=== PATIENT | female | born 1955 | race Caucasian/White ===

== ENCOUNTER 2024-05-27 14:37 | Observation (INO) ==
[2024-05-27 17:33] LABS: EOSINOPHILS # (AUTO) 0.5 x10^3/uL (0.0-0.2); EOSINOPHILS % (AUTO) 10.5 % (0.9-2.9); HEMATOCRIT 35.2 % (36.0-47.0); HEMOGLOBIN 12.1 g/dL (12.0-16.0); LYMPHOCYTES # (AUTO) 1.1 X10^3/uL (1.3-2.9); LYMPHOCYTES % (AUTO) 25.1 % (21.0-51.0); MEAN CORPUSCULAR HEMOGLOBIN 34.5 pg (27.0-34.0); MEAN CORPUSCULAR HGB CONC 34.3 g/dL (33.0-35.0); MEAN CORPUSCULAR VOLUME 100.5 fL (80.0-100.0); MEAN PLATELET VOLUME 7.2 fL (7.4-11.0); MONOCYTES # (AUTO) 0.5 x10^3/uL (0.3-0.8); MONOCYTES % (AUTO) 10.3 % (0.0-13.0); NEUTROPHILS # (AUTO) 2.4 x10^3/uL (2.2-4.8); NEUTROPHILS % (AUTO) 53.1 % (42.0-75.0); PLATELET COUNT 172 X10^3/uL (150.0-450.0); RED CELL DISTRIBUTION WIDTH 12.8 % (11.6-16.5); WHITE BLOOD COUNT 4.5 X10^3/uL (3.6-10.0)
[2024-05-27 17:49] LABS: ALANINE AMINOTRANSFERASE 12 Units/L (12-78); ALBUMIN 3.5 g/dL (3.4-5.0); ALKALINE PHOSPHATASE 57 Units/L (46-116); ASPARTATE AMINO TRANSFERASE 21 Units/L (15-37); BLOOD UREA NITROGEN 8 mg/dL (7-18); CALCIUM 9.8 mg/dL (8.5-10.1); CARBON DIOXIDE 27.3 mmol/L (21-32); CHLORIDE 100 mmol/L (98-107); CREATININE 1.06 mg/dL (0.55-1.02); GLUCOSE 74 mg/dL (65-99); POTASSIUM 4.1 mmol/L (3.5-5.1); SODIUM 136 mmol/L (136-145); TOTAL PROTEIN 7.4 g/dL (6.4-8.2); eGFR NON BLACK RACES 54 (>60)
[2024-05-27 17:59] VITALS: BMI 19.8
[2024-05-27] MEDS: NS 1,000 ML IV 1,000 ML IV ONE (18:14)
[2024-05-27] MEDS ORDERED: PROVENTIL NEB TX 0.083% 2.5MG/ 3ML NEB PRN (18:28)
[2024-05-27] MEDS ORDERED: ZOFRAN TAB 4 MG SL PRN (19:08)
[2024-05-27] MEDS: NORCO 5/325 MG TAB PO PRN (20:09)
[2024-05-27] MEDS: CHECK PATCH XX SCH (20:10)
[2024-05-27] MEDS: RESTORIL CAP 15 MG PO PRN (22:24)
[2024-05-27 23:40] LABS: CRYPTOSPORIDIUM PARVUM ANTIGEN NEGATIVE (NEGATIVE); GIARDIA LAMBLIA ANTIGEN NEGATIVE (NEGATIVE)
[2024-05-28] MEDS: NS 1,000 ML IV 1,000 ML IV SCH (02:39)
[2024-05-28 06:12] LABS: BASOPHILS % (AUTO) 1.2 % (0.2-1.0); EOSINOPHILS # (AUTO) 0.5 x10^3/uL (0.0-0.2); EOSINOPHILS % (AUTO) 15.9 % (0.9-2.9); HEMATOCRIT 29.9 % (36.0-47.0); HEMOGLOBIN 10.4 g/dL (12.0-16.0); LYMPHOCYTES # (AUTO) 1.1 X10^3/uL (1.3-2.9); LYMPHOCYTES % (AUTO) 31.8 % (21.0-51.0); MEAN CORPUSCULAR HEMOGLOBIN 35.1 pg (27.0-34.0); MEAN CORPUSCULAR HGB CONC 34.8 g/dL (33.0-35.0); MEAN PLATELET VOLUME 7.5 fL (7.4-11.0); MONOCYTES # (AUTO) 0.3 x10^3/uL (0.3-0.8); MONOCYTES % (AUTO) 9.5 % (0.0-13.0); NEUTROPHILS # (AUTO) 1.4 x10^3/uL (2.2-4.8); NEUTROPHILS % (AUTO) 41.6 % (42.0-75.0); PLATELET COUNT 160 X10^3/uL (150.0-450.0); RED BLOOD COUNT 2.96 X10^6/uL (3.5-5.4); RED CELL DISTRIBUTION WIDTH 12.9 % (11.6-16.5); WHITE BLOOD COUNT 3.4 X10^3/uL (3.6-10.0)
[2024-05-28 06:30] LABS: ALANINE AMINOTRANSFERASE 12 Units/L (12-78); ALBUMIN 2.8 g/dL (3.4-5.0); ALKALINE PHOSPHATASE 44 Units/L (46-116); ASPARTATE AMINO TRANSFERASE 15 Units/L (15-37); BLOOD UREA NITROGEN 6 mg/dL (7-18); CALCIUM 9.2 mg/dL (8.5-10.1); CARBON DIOXIDE 26.1 mmol/L (21-32); CHLORIDE 105 mmol/L (98-107); COR CA(FOR HYPOALB) 10.2 mg/dL (8.5-10.1); CREATININE 0.91 mg/dL (0.55-1.02); GLUCOSE 77 mg/dL (65-99); POTASSIUM 3.9 mmol/L (3.5-5.1); SODIUM 138 mmol/L (136-145); TOTAL PROTEIN 6.1 g/dL (6.4-8.2); eGFR NON BLACK RACES > 60 (>60)
[2024-05-28] MEDS: NS 1,000 ML IV 1,000 ML with MVI INJ (ADULT) 10 ML IV SCH (08:37)
[2024-05-28] MEDS: CIPRO IV 400 MG PREMIX* 400 MG/200 ML IV.SOLN. IV SCH (08:38)
[2024-05-28] MEDS: NICOTINE PATCH TD SCH (08:39)
[2024-05-28] MEDS: LOVENOX INJ 40 MG SYR SC SCH (09:09)
--- NOTE | 2024-05-28 12:48 | CT ---
EXAM: CT abdomen pelvis with contrast HISTORY: Abdominal pain, diarrhea TECHNIQUE: Axial postcontrast images with coronal and sagittal reformats. Dose reduction procedures were used w ith mA/kv adjusted for body size. COMPARISON: None available FINDINGS: Lung bases are clear. The liver, spleen, adrenal glands, and pancreas are within normal limits. S everal benign hepatic cysts are identified. No opaque stones are present within the gallbladder. Ki dneys are unobstructed and without stones or masses there is a left renal cyst present. No ureteral calculi are identified. Appendix is not identified with absolute certainty. There are no secondary signs of appendicitis. There are no findings suggestive of enteritis, colitis or diverticulitis. Di ffuse calcific atherosclerotic changes present in the nondilated abdominal aorta. There is extensive severe atherosclerotic change involving the superior mesenteric artery with multiple areas of stenos is some of which may be as much as 90%. Correlation with CTA of the abdomen and pelvis is recommende d when the patient's current intravenous contrast has cleared her system. There is diastasis of the rectus abdominis musculature with bulging of mesenteric fat into the anterior abdominal wall. The fa t is uncomplicated in a true ventral hernia does not appear to be present. Examination of the pelvis demonstrated no evidence for pelvic masses, pelvic fluid, or pelvic lymphadenopathy. No bladder abn ormality is identified. No lytic or blastic skeletal lesions of significance are identified. IMPRESSION: No findings to suggest enteritis or colitis as an etiology of the patient's diarrhea and abdominal p ain. Severe calcific atherosclerotic change throughout the abdominal aorta common iliac vessels and other abdominal vasculature with severe involvement of the superior mesenteric artery which demonstrate mul tiple areas of stenosis within the proximal SMA some possibly as great as 90%. This could be contrib uting to abdominal pain and diarrhea. Further evaluation with CTA of the abdomen and pelvis may be o f further diagnostic value when the patient's current contrast load has cleared her system. Vascular surgery consultation may also be indicated. Diastasis of the rectus abdominal musculature as described above THIS IS AN ELECTRONICALLY VERIFIED FINAL REPORT 05/28/2024 12:45 PM - Electronically signed by Jayson Mazariegos MD
--- NOTE | 2024-05-28 13:21 | DR.H&P ---
H&P History & Physical for Day of: H&P Date: 05/28/24 Chief Complaint Chief Complaint: diarrhea History of Present Illness History of Present Illness: Patient admitted with a greater than a month of profuse, watery, intractable diarrhea. Having up to 15 stools a day. Has lost ~20lbs over the past 5 weeks. She does have a history of colon cancer status post resection 2 years ago. On a follow-up PET scan a lung nodule was found on the left lower lobe which responded well to radiation. She has been cancer free for over a year now. Since her colon resection she has had a large ventral hernia. It has worsened during these episodes of stooling. She denies fever, chills, nausea, vomiting, hematochezia, hematemesis, syncope, poor p.o. intake, leg edema, rash. After admission, kidney function did improve with IV fluids, vitals have remained stable, CBC showed a delusional effect, and she has been able to tolerate meals. Has only had a couple of loose, watery stools since admission. PMH: Colon cancer, hyperlipidemia, GERD, JOSIE, OA. PSH: Appendectomy, hysterectomy, colon resection. Social: Local resident, good social support, daily smoker. ROS: 12 point ROS negative except as noted in HPI. PE: Thin, emaciated female in no acute distress. Head NCAT. Hearing intact to conversation. Extraocular movements are grossly normal. Heart regular rate and rhythm with no murmur. Lungs are clear with good air movement. Belly is soft, nontender, nondistended. Does have a large ventral hernia inferior to the umbilicus. Bowel sounds are hyperactive. Mood and affect are appropriate. No swelling of her extremities. Moves all extremities equally well. Past Surgical History Surgical History: Appendectomy, Hysterectomy and Ortho Surgery Family History Family Medical History: Diabetes Mellitus, Cancer and Coronary Artery Disease Social History Does patient currently use any type of tobacco product: Yes Type of Tobacco Use: Cigarettes How many years tobacco product used: 55 Alcohol Use: DAILY Drug Use: None Medications Home Medications: Home Medications Medication Instructions Recorded Confirmed Type alprazolam 1 mg tablet 0.5 mg PO BID 05/27/24 05/27/24 History citalopram 20 mg tablet 20 mg PO QDAY 05/27/24 05/27/24 History fenofibrate 54 mg tablet 54 mg PO QDAY 05/27/24 05/27/24 History fluticasone propionate 50 1 spray intranasal DAILY 05/27/24 05/27/24 History mcg/actuation nasal spray,suspension ibuprofen 800 mg tablet 800 mg PO DAILY 05/27/24 05/27/24 History meloxicam 15 mg tablet 15 mg PO QDAY 05/27/24 05/27/24 History omeprazole 40 mg capsule,delayed 40 mg PO QDAY 05/27/24 05/27/24 History release pravastatin 80 mg tablet 80 mg PO HS 05/27/24 05/27/24 History Allergies Allergies Allergy/AdvReac Type Severity Reaction Status Date / Time codeine AdvReac Verified 05/27/24 18:02 Labs 05/28/24 05:25 05/28/24 05:25 Labs: 05/27/24 21:58 Stool - Final Laboratory WBC 3.4 X10^3/uL (3.6-10.0) L 05/28/24 05:25 RBC 2.96 X10^6/uL (3.5-5.4) L 05/28/24 05:25 Hgb 10.4 g/dL (12.0-16.0) L 05/28/24 05:25 Hct 29.9 % (36.0-47.0) L 05/28/24 05:25 MCV 101.0 fL (80.0-100.0) H 05/28/24 05:25 MCH 35.1 pg (27.0-34.0) H 05/28/24 05:25 MCHC 34.8 g/dL (33.0-35.0) 05/28/24 05:25 RDW 12.9 % (11.6-16.5) 05/28/24 05:25 Plt Count 160 X10^3/uL (150.0-450.0) 05/28/24 05:25 MPV 7.5 fL (7.4-11.0) 05/28/24 05:25 Neut % (Auto) 41.6 % (42.0-75.0) L 05/28/24 05:25 Lymph % (Auto) 31.8 % (21.0-51.0) 05/28/24 05:25 [place] % (Auto) 9.5 % (0.0-13.0) 05/28/24 05:25 Eos % (Auto) 15.9 % (0.9-2.9) H 05/28/24 05:25 Baso % (Auto) 1.2 % (0.2-1.0) H 05/28/24 05:25 Neut # (Auto) 1.4 x10^3/uL (2.2-4.8) L 05/28/24 05:25 Lymph # (Auto) 1.1 X10^3/uL (1.3-2.9) L 05/28/24 05:25 [place] # (Auto) 0.3 x10^3/uL (0.3-0.8) 05/28/24 05:25 Eos # (Auto) 0.5 x10^3/uL (0.0-0.2) H 05/28/24 05:25 Baso # (Auto) 0.0 X10^3/uL (0.0-0.1) 05/28/24 05:25 Absolute Nucleated RBC 0.1 /100WBC 05/28/24 05:25 Sodium 138 mmol/L (136-145) 05/28/24 05:25 Corrected Sodium TNP 05/28/24 05:25 Potassium 3.9 mmol/L (3.5-5.1) 05/28/24 05:25 Chloride 105 mmol/L (98-107) 05/28/24 05:25 Carbon Dioxide 26.1 mmol/L (21-32) 05/28/24 05:25 BUN 6 mg/dL (7-18) L 05/28/24 05:25 Creatinine 0.91 mg/dL (0.55-1.02) 05/28/24 05:25 Est GFR (MDRD) Af Amer > 60 (>60) 05/28/24 05:25 Est GFR (MDRD) Non-Af > 60 (>60) 05/28/24 05:25 Glucose 77 mg/dL (65-99) 05/28/24 05:25 Calcium 9.2 mg/dL (8.5-10.1) 05/28/24 05:25 Corrected Calcium 10.2 mg/dL (8.5-10.1) H 05/28/24 05:25 Total Bilirubin 0.40 mg/dL (0.2-1.0) 05/28/24 05:25 AST 15 Units/L (15-37) 05/28/24 05:25 ALT 12 Units/L (12-78) 05/28/24 05:25 Alkaline Phosphatase 44 Units/L (46-116) L 05/28/24 05:25 Total Protein 6.1 g/dL (6.4-8.2) L 05/28/24 05:25 Albumin 2.8 g/dL (3.4-5.0) L 05/28/24 05:25 Globulin 3.3 g/dL (2.5-4.5) 05/28/24 05:25 Albumin/Globulin Ratio 0.8 Ratio (1.1-2.1) L 05/28/24 05:25 Stl Occult Blood (IFOB) Negative (NEGATIVE) 05/27/24 21:58 Stool for White Cells Positive (NEGATIVE) A 05/27/24 21:58 Stl C. diff Tox B Gene Negative (NEGATIVE) 05/27/24 21:58 Stl C. diff [id number] Presumptive negative (NEGATIVE) 05/27/24 21:58 Cryptosporid parvum Ag Negative (NEGATIVE) 05/27/24 21:58 Giardia lamblia Ag Negative (NEGATIVE) 05/27/24 21:58 Physical Exam Vital Signs: Vital Signs Temperature 98.3 F Temperature 98.5 F Pulse Rate [Brachial] 63 Pulse Rate [Brachial] 67 Respiratory Rate 20 Respiratory Rate 18 Blood Pressure [Right Arm] 121/58 Blood Pressure [Right Arm] 130/60 O2 Sat by Pulse Oximetry 94 O2 Sat by Pulse Oximetry 94 Assessment/Plan (1) Infectious diarrhea: Narrative Support Text: Start Cipro and Flagyl. CT of the abdomen pelvis with p.o. and IV contrast. Multiple stool studies have been negative so far. Still pending pathogen PCR. Status: Acute (2) Mixed hyperlipidemia: Narrative Support Text: Continue home meds Status: Acute (3) Ventral hernia without obstruction or gangrene: Narrative Support Text: Plan on general surgery consult after CT Status: Acute (4) JOSIE (generalized anxiety disorder): Narrative Support Text: Continue home meds Status: Acute (5) History of colon cancer in adulthood: Narrative Support Text: CT Status: Acute
[2024-05-28] MEDS: FLAGYL IV PREMIX 500 MG BAG 500 MG/100 ML BAG IV SCH (13:53)
[2024-05-28] MEDS: TYLENOL 325 MG TAB PO PRN (16:33)
[2024-05-29 06:14] LABS: BASOPHILS % (AUTO) 1.2 % (0.2-1.0); EOSINOPHILS # (AUTO) 0.6 x10^3/uL (0.0-0.2); EOSINOPHILS % (AUTO) 14.1 % (0.9-2.9); HEMOGLOBIN 10.7 g/dL (12.0-16.0); LYMPHOCYTES % (AUTO) 26.7 % (21.0-51.0); MEAN CORPUSCULAR HEMOGLOBIN 34.7 pg (27.0-34.0); MEAN CORPUSCULAR HGB CONC 34.5 g/dL (33.0-35.0); MEAN CORPUSCULAR VOLUME 100.5 fL (80.0-100.0); MEAN PLATELET VOLUME 7.5 fL (7.4-11.0); MONOCYTES # (AUTO) 0.4 x10^3/uL (0.3-0.8); MONOCYTES % (AUTO) 9.9 % (0.0-13.0); NEUTROPHILS # (AUTO) 1.9 x10^3/uL (2.2-4.8); NEUTROPHILS % (AUTO) 48.1 % (42.0-75.0); PLATELET COUNT 165 X10^3/uL (150.0-450.0); RED BLOOD COUNT 3.08 X10^6/uL (3.5-5.4); WHITE BLOOD COUNT 3.9 X10^3/uL (3.6-10.0)
[2024-05-29 06:30] LABS: ALANINE AMINOTRANSFERASE 11 Units/L (12-78); ALKALINE PHOSPHATASE 46 Units/L (46-116); ASPARTATE AMINO TRANSFERASE 16 Units/L (15-37); BLOOD UREA NITROGEN 4 mg/dL (7-18); CALCIUM 9.3 mg/dL (8.5-10.1); CHLORIDE 104 mmol/L (98-107); COR CA(FOR HYPOALB) 10.1 mg/dL (8.5-10.1); CREATININE 0.89 mg/dL (0.55-1.02); GLUCOSE 87 mg/dL (65-99); POTASSIUM 3.1 mmol/L (3.5-5.1); SODIUM 138 mmol/L (136-145); TOTAL PROTEIN 6.5 g/dL (6.4-8.2); eGFR NON BLACK RACES > 60 (>60)
[2024-05-29] MEDS: OMNIPAQUE 350 mg/mL 100 mL BTL 100 ML ONE (06:59)
[2024-05-29] MEDS: NS 500 ML IV 500 ML IV ONE (06:59)
[2024-05-29] MEDS: READI-CAT 2 ONE (06:59)
[2024-05-29] MEDS ORDERED: CONSULT PHARMACY - POTASSIUM & MAGNESIUM XX SCH (07:00)
[2024-05-29] MEDS: K-DUR TAB 20 MEQ PO SCH (08:11)
[2024-05-29] MEDS: MAG-OX TAB PO SCH (08:13)
--- NOTE | 2024-05-29 09:19 | PCM.PROG ---
Progress Note Progress Note for Day of Date of Exam: 05/29/24 Subjective Subjective: Patient is doing well this morning. No acute events overnight. She has had no diarrhea episodes over the past 24 hours. Labs/imaging: WBC 3.9, hemoglobin 10.9, platelets 165, sodium 138, potassium 3.1, creatinine 0.89, glucose 87. GI PCR pending. Stool culture negative growth to date. Patient did have CT abdomen pelvis that showed multiple areas of stenosis of the mesenteric arteries. Vascular surgeryDr. Hayes was consulted and will be evaluating. Blood pressure has been trending up, will start on Norvasc 5 mg daily. Otherwise continue with current treatment plan. Replete potassium as per protocol. Continue closely monitor and follow-up labs/imaging. Past Medical Family Social History Allergies: Allergies codeine Adverse Reaction (Verified 05/27/24 18:02) Review of Systems ROS changes noted: see HPI Vital Signs and I&O's Vital Signs: Vital Signs Temperature 98 F Temperature 98 F Pulse Rate [Brachial] 59 Pulse Rate [Brachial] 60 Respiratory Rate 19 Respiratory Rate 20 Blood Pressure [Right Arm] 175/75 Blood Pressure [Right Arm] 156/75 O2 Sat by Pulse Oximetry 96 O2 Sat by Pulse Oximetry 95 Intake and Output: Intake & Output 05/26/24 05/27/24 05/28/24 05/29/24 23:59 23:59 23:59 23:59 Intake Total 712 / 712 3391 / 3391 582 / 582 Balance 712 / 712 3391 / 3391 582 / 582 Physical Exam Oriented: Normal, Time, Person and Place Eyes: Normal Respiratory: Normal Cardiovascular: Normal Auscultation: Bowel Sounds: Normal Palpation: Normal Tenderness: Normal Skin: Normal Musculoskeletal: Normal Mood Description: Calm Speech Pattern: Clear and Appropriate Laboratory and Diagnostics 05/29/24 05:06 05/29/24 05:06 Labs: 05/27/24 21:58 Stool Stool Culture - Final 05/27/24 21:58 Stool - Final Laboratory WBC 3.9 X10^3/uL (3.6-10.0) 05/29/24 05:06 RBC 3.08 X10^6/uL (3.5-5.4) L 05/29/24 05:06 Hgb 10.7 g/dL (12.0-16.0) L 05/29/24 05:06 Hct 31.0 % (36.0-47.0) L 05/29/24 05:06 MCV 100.5 fL (80.0-100.0) H 05/29/24 05:06 MCH 34.7 pg (27.0-34.0) H 05/29/24 05:06 MCHC 34.5 g/dL (33.0-35.0) 05/29/24 05:06 RDW 13.0 % (11.6-16.5) 05/29/24 05:06 Plt Count 165 X10^3/uL (150.0-450.0) 05/29/24 05:06 MPV 7.5 fL (7.4-11.0) 05/29/24 05:06 Neut % (Auto) 48.1 % (42.0-75.0) 05/29/24 05:06 Lymph % (Auto) 26.7 % (21.0-51.0) 05/29/24 05:06 [place] % (Auto) 9.9 % (0.0-13.0) 05/29/24 05:06 Eos % (Auto) 14.1 % (0.9-2.9) H 05/29/24 05:06 Baso % (Auto) 1.2 % (0.2-1.0) H 05/29/24 05:06 Neut # (Auto) 1.9 x10^3/uL (2.2-4.8) L 05/29/24 05:06 Lymph # (Auto) 1.0 X10^3/uL (1.3-2.9) L 05/29/24 05:06 [place] # (Auto) 0.4 x10^3/uL (0.3-0.8) 05/29/24 05:06 Eos # (Auto) 0.6 x10^3/uL (0.0-0.2) H 05/29/24 05:06 Baso # (Auto) 0.0 X10^3/uL (0.0-0.1) 05/29/24 05:06 Absolute Nucleated RBC 0.1 /100WBC 05/29/24 05:06 Sodium 138 mmol/L (136-145) 05/29/24 05:06 Corrected Sodium TNP 05/29/24 05:06 Potassium 3.1 mmol/L (3.5-5.1) L 05/29/24 05:06 Chloride 104 mmol/L (98-107) 05/29/24 05:06 Carbon Dioxide 28.0 mmol/L (21-32) 05/29/24 05:06 BUN 4 mg/dL (7-18) L 05/29/24 05:06 Creatinine 0.89 mg/dL (0.55-1.02) 05/29/24 05:06 Est GFR (MDRD) Af Amer > 60 (>60) 05/29/24 05:06 Est GFR (MDRD) Non-Af > 60 (>60) 05/29/24 05:06 Glucose 87 mg/dL (65-99) 05/29/24 05:06 Calcium 9.3 mg/dL (8.5-10.1) 05/29/24 05:06 Corrected Calcium 10.1 mg/dL (8.5-10.1) 05/29/24 05:06 Magnesium 1.2 mg/dL (2.0-2.9) L 05/29/24 05:06 Total Bilirubin 0.60 mg/dL (0.2-1.0) 05/29/24 05:06 AST 16 Units/L (15-37) 05/29/24 05:06 ALT 11 Units/L (12-78) L 05/29/24 05:06 Alkaline Phosphatase 46 Units/L (46-116) 05/29/24 05:06 Total Protein 6.5 g/dL (6.4-8.2) 05/29/24 05:06 Albumin 3.0 g/dL (3.4-5.0) L 05/29/24 05:06 Globulin 3.5 g/dL (2.5-4.5) 05/29/24 05:06 Albumin/Globulin Ratio 0.9 Ratio (1.1-2.1) L 05/29/24 05:06 Stl Occult Blood (IFOB) Negative (NEGATIVE) 05/27/24 21:58 Stool for White Cells Positive (NEGATIVE) A 05/27/24 21:58 Stl C. diff Tox B Gene Negative (NEGATIVE) 05/27/24 21:58 Stl C. diff [id number] Presumptive negative (NEGATIVE) 05/27/24 21:58 Cryptosporid parvum Ag Negative (NEGATIVE) 05/27/24 21:58 Giardia lamblia Ag Negative (NEGATIVE) 05/27/24 21:58 Plan (1) Infectious diarrhea: Status: Acute (2) Mixed hyperlipidemia: Status: Acute (3) Ventral hernia without obstruction or gangrene: Status: Acute (4) JOSIE (generalized anxiety disorder): Status: Acute (5) History of colon cancer in adulthood: Status: Acute
[2024-05-29] MEDS: NORVASC TAB 5 MG PO SCH (09:36)
--- NOTE | 2024-05-29 17:19 | DR.CONSULT ---
CONSULT Consultation for Day of: Date: 05/28/24 Chief Complaint Chief Complaint: abdominal pain, vomiting , diarrhea Allergies Allergies Allergy/AdvReac Type Severity Reaction Status Date / Time codeine AdvReac Verified 05/27/24 18:02 History of Present Illness History of Present Illness: This is a 69 year old female with 1 month history of persistent diarrhea and abdominal pain,often with meals. She had CT scan of the abdomen not dedicated to the vascular tree which did however show significant stenosis of the superior mesenteric artery with stenosis up to 90% which could be the source of her problem. She has history of colon cancer S/P resection in the past followed by chemotherapy. Subsequent developed a lung metastasis requiring radiation treatment. Patient is a heavy smoker. She denies any significant problems with her legs or walking although she walks very little. She also has a large ventral incisional hernia .I have been asked to evaluate her in regards to the severe superior mesenteric artery stenosis. She has lost over 20 pounds in the last 5 weeks. She lost significant weight which she never regained after treatment for her colon cancer . She also gives a history or alcohol use every day. Past Medical History Past Medical History: Arthritis, Dyslipidemia and GERD Additional Medical History: Hx of colon cancer treated as above Past Surgical History Surgical History: Appendectomy, Bowel Resection (colon resection for colon cancer in the past ), Hysterectomy and Ortho Surgery Family History Family Medical History: Diabetes Mellitus, Cancer and Coronary Artery Disease Social History Does patient currently use any type of tobacco product: Yes Type of Tobacco Use: Cigarettes How many years tobacco product used: 55 Alcohol Use: DAILY Drug Use: None Medications Home Medications: codeine Adverse Reaction (Verified 05/27/24 18:02) CONTINUE taking the following medications alprazolam 1 mg tablet 0.5 mg PO BID 05/27/24 [History] citalopram 20 mg tablet 20 mg PO QDAY 05/27/24 [History] fenofibrate 54 mg tablet 54 mg PO QDAY 05/27/24 [History] fluticasone propionate 50 mcg/actuation nasal spray,suspension 1 spray intranasal DAILY 05/27/24 [History] ibuprofen 800 mg tablet 800 mg PO DAILY 05/27/24 [History] meloxicam 15 mg tablet 15 mg PO QDAY 05/27/24 [History] omeprazole 40 mg capsule,delayed release 40 mg PO QDAY 05/27/24 [History] pravastatin 80 mg tablet 80 mg PO HS 05/27/24 [History] Review of Systems Constitutional: See HPI Eyes: No Symptoms Reported ENT: No Symptoms Reported Respiratory: No Symptoms Reported Cardiovascular: No Symptoms Reported Gastrointestinal: See HPI Genitourinary: No Symptoms Reported Musculoskeletal: No Symptoms Reported Skin: No Symptoms Reported Neurological: No Symptoms Reported Physical Exam Vital Signs: Vital Signs Temperature 97.7 F Temperature 97.8 F Temperature 97.8 F Pulse Rate [Brachial] 61 Pulse Rate [Brachial] 62 Pulse Rate [Brachial] 56 Respiratory Rate 19 Respiratory Rate 22 Respiratory Rate 18 Respiratory Rate 18 Respiratory Rate 18 Blood Pressure [Right Arm] 165/70 Blood Pressure [Right Arm] 180/74 Blood Pressure [Right Arm] 169/68 O2 Sat by Pulse Oximetry 96 O2 Sat by Pulse Oximetry 97 O2 Sat by Pulse Oximetry 98 Oriented: Normal, Time, Person and Place Eyes: Normal Ear: Normal Nose: Normal Throat: Normal Respiratory: Wheezes Throughout Cardiovascular: Normal : Normal Auscultation: Bowel Sounds: Normal Palpation: Other (large infra-umbilical ventral incisional hernia ) Tenderness: Normal Skin: Normal Musculoskeletal: Normal Psychiatric: Anxiety Mood Description: Calm Affect: Normal Speech Pattern: Clear and Appropriate Plan (1) Infectious diarrhea: Status: Acute Plan: Must have documentation of this , need stool culture and C.difficile titer (2) Mixed hyperlipidemia: Status: Acute (3) Ventral hernia without obstruction or gangrene: Status: Acute Plan: observe (4) JOSIE (generalized anxiety disorder): Status: Acute (5) History of colon cancer in adulthood: Status: Acute Plan: no obvious evicence of recurrence (6) Superior mesenteric artery stenosis: Status: Acute Plan: If all work-up for diarrhea is negative , may consider stenting of the superior mesenteric artery (7) Personal history of colon cancer: Status: Acute Plan: No obvious evidence of recurrence (8) Tobacco abuse: Status: Acute Plan: Nicotine patch (9) Alcohol abuse: Status: Acute Plan: watch for signs of withdrawal
--- NOTE | 2024-05-29 19:28 | NOTE.SOAP ---
Soap Note Note for Day of Date of Exam: 05/29/24 Subjective Data Subjective Data: Eating well, diarrhea intermittent , denies abdominal pain with eating Objective Data Temperature: 98.2 F Pulse Rate: 60 Respiratory Rate: 18 Blood Pressure: 119/54 O2 Sat by Pulse Oximetry: 95 Objective Data: Benign abdomen, no pain pain out of proportion to exam , no evidence of alcohol withdrawal , has nicotine patch Assessment Assessment: weight loss and diarrhea, possible due to intestinal ischemia Plan Plan: re peat palin films in AM and if no oral contrast in place will proceed with CTA , start CIWA protocol
[2024-05-29] MEDS: ATIVAN TAB 1 MG PO SCH (21:47)
--- NOTE | 2024-05-30 04:43 | RAD ---
PROCEDURE: Abdomen 1 View.HISTORY: INTRACTABLE DIARRHEA; DR WANTS TO MAKE SURE ORAL CONTRAST HAS CLEARED ; COPD, EMPHYSEMA, LUNG CA, COLON CA SX: APPY, HYST, ORTHO, COLONECTOMY;.TECHNIQUE: AP supine view of the abdomen.COMPARISON: None.TECHNICAL QUALITY: Satisfactory.FINDINGS:Rectal regions not included on this study.Remainder of visualized bowel shows no evidence of the oral contrast from CTA abdomen pelvis done on 05/28/2024.No dilated bowel loops.No organomegaly.IMPRESSION:1. Nonspecific bowel gas pattern.2. No evidence of retained oral contrast.3. Rectal areas not included on this study.THIS IS AN ELECTRONICALLY VERIFIED FINAL REPORT05/30/2024 4:34 AM - Electronically signed by Phu Sanchez MD
[2024-05-30 06:16] LABS: ALANINE AMINOTRANSFERASE 10 Units/L (12-78); ALKALINE PHOSPHATASE 42 Units/L (46-116); ASPARTATE AMINO TRANSFERASE 17 Units/L (15-37); BLOOD UREA NITROGEN 3 mg/dL (7-18); CALCIUM 9.2 mg/dL (8.5-10.1); CARBON DIOXIDE 25.6 mmol/L (21-32); CHLORIDE 105 mmol/L (98-107); CREATININE 0.83 mg/dL (0.55-1.02); GLUCOSE 91 mg/dL (65-99); MAGNESIUM 1.4 mg/dL (2.0-2.9); POTASSIUM 3.4 mmol/L (3.5-5.1); SODIUM 137 mmol/L (136-145); TOTAL PROTEIN 6.5 g/dL (6.4-8.2); eGFR NON BLACK RACES > 60 (>60)
[2024-05-30 06:35] LABS: BASOPHILS % (AUTO) 0.8 % (0.2-1.0); EOSINOPHILS # (AUTO) 0.5 x10^3/uL (0.0-0.2); EOSINOPHILS % (AUTO) 13.6 % (0.9-2.9); HEMATOCRIT 32.2 % (36.0-47.0); HEMOGLOBIN 10.9 g/dL (12.0-16.0); LYMPHOCYTES % (AUTO) 25.9 % (21.0-51.0); MEAN CORPUSCULAR HEMOGLOBIN 34.3 pg (27.0-34.0); MEAN CORPUSCULAR HGB CONC 33.8 g/dL (33.0-35.0); MEAN CORPUSCULAR VOLUME 101.6 fL (80.0-100.0); MEAN PLATELET VOLUME 7.3 fL (7.4-11.0); MONOCYTES # (AUTO) 0.4 x10^3/uL (0.3-0.8); MONOCYTES % (AUTO) 9.1 % (0.0-13.0); NEUTROPHILS % (AUTO) 50.6 % (42.0-75.0); PLATELET COUNT 152 X10^3/uL (150.0-450.0); RED BLOOD COUNT 3.17 X10^6/uL (3.5-5.4); RED CELL DISTRIBUTION WIDTH 13.1 % (11.6-16.5)
[2024-05-30] MEDS ORDERED: CONSULT PHARMACY - POTASSIUM & MAGNESIUM XX SCH (07:00)
[2024-05-30] MEDS: MAG-OX TAB PO SCH (08:03)
[2024-05-30] MEDS: CIPRO TAB 500 MG PO SCH (08:03)
[2024-05-30] MEDS: K-DUR TAB 20 MEQ PO SCH (08:04)
[2024-05-30] MEDS: FLAGYL TAB 500 MG PO SCH (13:21)
--- NOTE | 2024-05-30 20:56 | NOTE.SOAP ---
Soap Note Note for Day of Date of Exam: 05/30/24 Subjective Data Subjective Data: No further complaints. Diarrhea is intermittent Objective Data Temperature: 98.2 F Pulse Rate: 65 Respiratory Rate: 18 Blood Pressure: 129/62 O2 Sat by Pulse Oximetry: 96 Objective Data: Abdomen soft and benign. Assessment Assessment: Superior mesenteric artery stenosis , no other source of diarrhea found yet. Plan Plan: CTA of aorta tomorrow
[2024-05-30] MEDS: PRAVACHOL PO SCH (21:00)
[2024-05-30] MEDS ORDERED: LIPITOR TAB 40 MG PO SCH (21:00)
[2024-05-31 05:35] LABS: BASOPHILS # (AUTO) 0.1 X10^3/uL (0.0-0.1); BASOPHILS % (AUTO) 1.5 % (0.2-1.0); EOSINOPHILS # (AUTO) 0.5 x10^3/uL (0.0-0.2); HEMATOCRIT 29.8 % (36.0-47.0); HEMOGLOBIN 10.1 g/dL (12.0-16.0); LYMPHOCYTES # (AUTO) 0.7 X10^3/uL (1.3-2.9); LYMPHOCYTES % (AUTO) 20.2 % (21.0-51.0); MEAN CORPUSCULAR HEMOGLOBIN 34.4 pg (27.0-34.0); MEAN CORPUSCULAR VOLUME 101.3 fL (80.0-100.0); MEAN PLATELET VOLUME 7.4 fL (7.4-11.0); MONOCYTES # (AUTO) 0.5 x10^3/uL (0.3-0.8); MONOCYTES % (AUTO) 12.3 % (0.0-13.0); NEUTROPHILS # (AUTO) 1.9 x10^3/uL (2.2-4.8); PLATELET COUNT 158 X10^3/uL (150.0-450.0); RED BLOOD COUNT 2.94 X10^6/uL (3.5-5.4); RED CELL DISTRIBUTION WIDTH 13.1 % (11.6-16.5); WHITE BLOOD COUNT 3.7 X10^3/uL (3.6-10.0)
[2024-05-31 05:47] LABS: ALANINE AMINOTRANSFERASE 9 Units/L (12-78); ALBUMIN 2.7 g/dL (3.4-5.0); ALKALINE PHOSPHATASE 40 Units/L (46-116); ASPARTATE AMINO TRANSFERASE 14 Units/L (15-37); BLOOD UREA NITROGEN 3 mg/dL (7-18); CALCIUM 9.4 mg/dL (8.5-10.1); CARBON DIOXIDE 24.6 mmol/L (21-32); CHLORIDE 106 mmol/L (98-107); COR CA(FOR HYPOALB) 10.4 mg/dL (8.5-10.1); CREATININE 0.87 mg/dL (0.55-1.02); GLUCOSE 98 mg/dL (65-99); MAGNESIUM 1.6 mg/dL (2.0-2.9); POTASSIUM 3.6 mmol/L (3.5-5.1); SODIUM 139 mmol/L (136-145); TOTAL PROTEIN 6.1 g/dL (6.4-8.2); eGFR NON BLACK RACES > 60 (>60)
--- NOTE | 2024-05-31 07:56 | NOTE.SOAP ---
Soap Note Note for Day of Date of Exam: 05/30/24 Subjective Data Subjective Data: Stools thickening with only 1 in past 24hrs. No abdominal pain. Appetite fair. Labs and vitals stable with addition of Norvasc. Vascular on board. Objective Data Objective Data: Thin, elderly female in NAD. Hearing grossly normal. NCAT. RRR. CTA b/l. Abdominal sounds normoactive. Belly soft, NT, ND, with inferior ventral hernia. Assessment Assessment: 1. Infectious diarrhea- PCR still pending. Continue Cipro/Flagyl, switch to PO. r/o if PCR negative. Diarrhea source would be from below. 2. Intestinal ischemia- 2/2 smoking history. Appreciate vascular guidance. Continue Lovenox SQ, resume pravastatin. 3. Tobacco/EtOH dependence- Ativan for withdrawal prevention, nicotine patch, counseling. 4. HTN- continue Norvasc. BP appropriate this AM. Plan Plan: Repeat CT. Switch to PO abx. Await PCR results.
[2024-05-31 08:39] VITALS: PULSE 66; RESP 21; TEMP 98.7; O2SAT 96
[2024-05-31] MEDS ORDERED: OMNIPAQUE 350 mg/mL 50 mL BTL 50 ML ONE (08:40)
[2024-05-31] MEDS ORDERED: OMNIPAQUE 350 mg/mL 100 mL BTL 100 ML ONE (08:40)
[2024-05-31 19:04] VITALS: BP 128/72
--- NOTE | 2024-05-31 19:04 | NOTE.SOAP ---
Soap Note Note for Day of Date of Exam: 05/31/24 Subjective Data Subjective Data: Patient doing better with slowing of her diarrhea. CTA obtained but not has been officially read yet . It does appear to demonstate severe stenosis of the proximal superior mesenteric artery . Objective Data Temperature: 98.7 F Pulse Rate: 66 Respiratory Rate: 21 Blood Pressure: 128/72 O2 Sat by Pulse Oximetry: 96 Objective Data: Benign abdomen Assessment Assessment: Possible significant superior mesenteric artery stenosis Plan Plan: Patient to be discharfed home and will follow up with me in office next week.
--- NOTE | 2024-06-01 15:01 | PCM.DCPLAN ---
DISCHARGE SUMMARY Admission Date Date of Admission: 05/27/24 Discharge Date Discharge Date: 05/31/24 Admission Diagnoses (1) Infectious diarrhea: Status: Acute (2) Mixed hyperlipidemia: Status: Acute (3) Ventral hernia without obstruction or gangrene: Status: Acute (4) JOSIE (generalized anxiety disorder): Status: Acute (5) History of colon cancer in adulthood: Status: Acute (6) Superior mesenteric artery stenosis: Status: Acute (7) Personal history of colon cancer: Status: Acute (8) Tobacco abuse: Status: Acute (9) Alcohol abuse: Status: Acute Discharge Medications Discharge Medications: Home Medication List alprazolam 1 mg tablet 0.5 mg PO BID 05/27/24 [History] citalopram 20 mg tablet 20 mg PO QDAY 05/27/24 [History] fenofibrate 54 mg tablet 54 mg PO QDAY 05/27/24 [History] fluticasone propionate 50 mcg/actuation nasal spray,suspension 1 spray intranasal DAILY 05/27/24 [History] ibuprofen 800 mg tablet 800 mg PO DAILY 05/27/24 [History] meloxicam 15 mg tablet 15 mg PO QDAY 05/27/24 [History] omeprazole 40 mg capsule,delayed release 40 mg PO QDAY 05/27/24 [History] pravastatin 80 mg tablet 80 mg PO HS 05/27/24 [History] Prescriptions: Hospital Course Vital Signs: Vital Signs Temperature 98.7 F Temperature 98.4 F Pulse Rate [Brachial] 66 Pulse Rate [Brachial] 69 Respiratory Rate 21 Respiratory Rate 16 Blood Pressure [Right Arm] 128/62 Blood Pressure [Right Arm] 132/60 O2 Sat by Pulse Oximetry 96 O2 Sat by Pulse Oximetry 94 Latest Lab Results: Laboratory Last Values WBC 3.7 X10^3/uL (3.6-10.0) 05/31/24 05:05 RBC 2.94 X10^6/uL (3.5-5.4) L 05/31/24 05:05 Hgb 10.1 g/dL (12.0-16.0) L 05/31/24 05:05 Hct 29.8 % (36.0-47.0) L 05/31/24 05:05 MCV 101.3 fL (80.0-100.0) H 05/31/24 05:05 MCH 34.4 pg (27.0-34.0) H 05/31/24 05:05 MCHC 34.0 g/dL (33.0-35.0) 05/31/24 05:05 RDW 13.1 % (11.6-16.5) 05/31/24 05:05 Plt Count 158 X10^3/uL (150.0-450.0) 05/31/24 05:05 MPV 7.4 fL (7.4-11.0) 05/31/24 05:05 Neut % (Auto) 52.0 % (42.0-75.0) 05/31/24 05:05 Lymph % (Auto) 20.2 % (21.0-51.0) L 05/31/24 05:05 [place] % (Auto) 12.3 % (0.0-13.0) 05/31/24 05:05 Eos % (Auto) 14.0 % (0.9-2.9) H 05/31/24 05:05 Baso % (Auto) 1.5 % (0.2-1.0) H 05/31/24 05:05 Neut # (Auto) 1.9 x10^3/uL (2.2-4.8) L 05/31/24 05:05 Lymph # (Auto) 0.7 X10^3/uL (1.3-2.9) L 05/31/24 05:05 [place] # (Auto) 0.5 x10^3/uL (0.3-0.8) 05/31/24 05:05 Eos # (Auto) 0.5 x10^3/uL (0.0-0.2) H 05/31/24 05:05 Baso # (Auto) 0.1 X10^3/uL (0.0-0.1) 05/31/24 05:05 Absolute Nucleated RBC 0.0 /100WBC 05/31/24 05:05 Sodium 139 mmol/L (136-145) 05/31/24 05:05 Corrected Sodium TNP 05/31/24 05:05 Potassium 3.6 mmol/L (3.5-5.1) 05/31/24 05:05 Chloride 106 mmol/L (98-107) 05/31/24 05:05 Carbon Dioxide 24.6 mmol/L (21-32) 05/31/24 05:05 BUN 3 mg/dL (7-18) L 05/31/24 05:05 Creatinine 0.87 mg/dL (0.55-1.02) 05/31/24 05:05 Est GFR (MDRD) Af Amer > 60 (>60) 05/31/24 05:05 Est GFR (MDRD) Non-Af > 60 (>60) 05/31/24 05:05 Glucose 98 mg/dL (65-99) 05/31/24 05:05 Calcium 9.4 mg/dL (8.5-10.1) 05/31/24 05:05 Corrected Calcium 10.4 mg/dL (8.5-10.1) H 05/31/24 05:05 Magnesium 1.6 mg/dL (2.0-2.9) L 05/31/24 05:05 Total Bilirubin 0.30 mg/dL (0.2-1.0) 05/31/24 05:05 AST 14 Units/L (15-37) L 05/31/24 05:05 ALT 9 Units/L (12-78) L 05/31/24 05:05 Alkaline Phosphatase 40 Units/L (46-116) L 05/31/24 05:05 Total Protein 6.1 g/dL (6.4-8.2) L 05/31/24 05:05 Albumin 2.7 g/dL (3.4-5.0) L 05/31/24 05:05 Globulin 3.4 g/dL (2.5-4.5) 05/31/24 05:05 Albumin/Globulin Ratio 0.8 Ratio (1.1-2.1) L 05/31/24 05:05 Vitamin B12 836 pg/mL (193-986) 05/30/24 05:23 Folate > 20.0 ng/mL (>8.6) 05/30/24 05:23 Stl Occult Blood (IFOB) Negative (NEGATIVE) 05/27/24 21:58 Stool for White Cells Positive (NEGATIVE) A 05/27/24 21:58 Stl C. diff Tox B Gene Negative (NEGATIVE) 05/27/24 21:58 Stl C. diff [id number] Presumptive negative (NEGATIVE) 05/27/24 21:58 Cryptosporid parvum Ag Negative (NEGATIVE) 05/27/24 21:58 Giardia lamblia Ag Negative (NEGATIVE) 05/27/24 21:58 Hospital Course: Patient directly admitted from PCPs office due to concern about unintentional weight loss and severe diarrhea. [place] concern was for infectious diarrhea in the setting of a 2 pack/day smoker with colon cancer 2-1/2 years ago status post colon resection. All stool studies were negative at time of discharge. CT of the abdomen was concerning for mesenteric ischemia. She did not have the classic postprandial angina, but did have weight loss, food avoidance, and diarrhea. Vascular surgery consulted and recommended outpatient follow-up for evaluation of stent placement splint. It was discussed with patient that her tobacco and alcohol use could be contributing to the diarrhea in the setting of her colon resection. Patient was discharged home in improved, stable condition tolerating p.o. fluids and improved stool consistency.
== END 2024-05-31 12:05 | disposition home or self-care (01) ==
LOC: MED/SURG
PROVIDERS: ADMIT Family Medicine; ATTEND Family Medicine
DX: R26.89 Other abnormalities of gait and mobility; I10 Essential (primary) hypertension; Z85.038 Personal history of other malignant neoplasm of large intestine; Z68.20 Body mass index [BMI] 20.0-20.9, adult; R10.84 Generalized abdominal pain; K55.1 Chronic vascular disorders of intestine; E87.6 Hypokalemia; E78.2 Mixed hyperlipidemia; R63.4 Abnormal weight loss; F10.10 Alcohol abuse, uncomplicated; F41.1 Generalized anxiety disorder; A09 Infectious gastroenteritis and colitis, unspecified; Z72.0 Tobacco use; K43.9 Ventral hernia without obstruction or gangrene; K21.9 Gastro-esophageal reflux disease without esophagitis; E83.42 Hypomagnesemia